=== PATIENT | female | born 2000 | race Caucasian/White ===

== ENCOUNTER 2021-07-09 23:12 | Emergency (ER) | payer OTHER, SELFPAY ==
[2021-07-09 23:27] VITALS: BP 105/75; PULSE 100; RESP 20; TEMP 37.7; O2SAT 99
--- NOTE | 2021-07-10 00:07 | PC.NURSE ---
Pt ambulatory in without difficulty/distress. awaiting ED Room assignment.
[2021-07-10 01:20] LABS: EDCOVIDSCREEN Positive (Negative)
--- NOTE | 2021-07-10 01:42 | ED.GENADULT ---
HPI - General Adult General Chief complaint: Upper Respiratory Infection Stated complaint: covid symptoms since noon Time Seen by Provider: 07/10/21 00:31 History of Present Illness HPI narrative: Patient is a 21-year-old female who presents ER with concerns for COVID-19. She is unvaccinated. This afternoon she began having fevers and chills. She has runny nose without sore throat or productive cough. She has no exertional dyspnea. She reports that her mom checked her pulse oximeter reading and it was 80% however patient has normal oxygen saturation here. No chest pain or chest pressure. No known sick contacts but she does work at a [employer] course inside and they do not wear masks. Related Data Allergies Allergy/AdvReac Type Severity Reaction Status Date / Time Penicillins Allergy Intermediate Unknown Verified 07/09/21 23:33 Review of Systems Review of Systems: All systems reviewed & are unremarkable except as noted in HPI and below Constitutional: Constitutional: Reports chills, Reports fatigue and Reports fever(s) ENT: Denies sore throat Comments: Rhinorrhea Cardiovascular: Cardiovascular: Denies chest pain and Denies radiating jaw, neck or arm pain Respiratory: Respiratory: Denies cough, Denies dyspnea and Denies wheezing Gastrointestinal: Gastrointestinal: Denies abdominal pain, Denies nausea and Denies vomiting PMFSH Past Medical History Medical History (Updated 07/10/21 @ 01:45 by Harvey Becker MD) Anxiety Depression Surgical History Surgical History (Updated 07/10/21 @ 01:45 by Harvey Becker MD) No pertinent past surgical history Social History Social History (Updated 07/10/21 @ 01:45 by Harvey Becker MD) Smoking status: Never smoker Exam Narrative: GENERAL: Well-appearing, well-nourished, and in no acute distress. HEAD: Normocephalic, atraumatic. CHEST: Clear to auscultation. No respiratory distress. HEART: Regular rate and rhythm. Normal peripheral pulses. EXTREMITIES: Normal range of motion. No edema. SKIN: Warm, dry, no rash. NEURO: Alert and oriented x3. PSYCH: Normal mood and affect. Course Course Emergency Course: Informed of results. Discharge home. Vital Signs Vital signs: Vital Signs Temperature 99.9 F H 07/09/21 23:27 Pulse Rate 100 07/09/21 23:27 Respiratory Rate 20 07/09/21 23:27 Blood Pressure 105/75 07/09/21 23:27 Pulse Oximetry 99 07/09/21 23:27 Temperature 99.9 F H 07/09/21 23:27 Pulse Rate 100 07/09/21 23:27 Respiratory Rate 20 07/09/21 23:27 Blood Pressure 105/75 07/09/21 23:27 Pulse Oximetry 99 07/09/21 23:27 Medical Decision Making Vital Signs Vital Signs: Vital Signs Temperature 99.9 F H 07/09/21 23:27 Pulse Rate 100 07/09/21 23:27 Respiratory Rate 20 07/09/21 23:27 Blood Pressure 105/75 07/09/21 23:27 Pulse Oximetry 99 07/09/21 23:27 Temperature 99.9 F H 07/09/21 23:27 Pulse Rate 100 07/09/21 23:27 Respiratory Rate 20 07/09/21 23:27 Blood Pressure 105/75 07/09/21 23:27 Pulse Oximetry 99 07/09/21 23:27 Lab Data Labs: Lab Results 07/10/21 Range/Units 01:01 SARS-CoV-2 IgG/IgM Ag?Rapid Positive (Negative) Discharge Plan Discharge Clinical Impression: COVID-19 Patient Disposition: Home, Self-Care Condition: Stable Instructions: COVID-19 (Coronavirus Disease 2019) (ED) Additional Instructions: Take Tylenol for fever. Return the ER if you cannot keep down food or water, you develop chest pain or shortness of breath, you have a pulse oximetry reading that is persistently below 90%. Contact your primary care physician. They will have to clear you to return to work. Follow-up/Referrals: Michael,Karey Cassidy MD [Primary Care Provider] - 2 Weeks Stand Alone Forms: Work/School Release IP
[2021-07-10 01:53] VITALS: BP 110/78; PULSE 99; RESP 18; O2SAT 100
== END 2021-07-10 01:53 | disposition home or self-care (01) ==
PROVIDERS: Emergency Provider Emergency Medicine; PCP Family Medicine
DX: U07.1 COVID-19 (principal)
CPT/HCPCS: 36415; 87426; 99283; C9803

== ENCOUNTER 2022-04-01 17:27 | Emergency (ER) | payer OTHER, SELFPAY ==
[2022-04-01 17:39] VITALS: BP 123/75; PULSE 76; RESP 16; TEMP 36.5; O2SAT 100
--- NOTE | 2022-04-01 18:22 | ED.WOUNDLAC ---
HPI - Wound/Laceration General Chief Complaint: Wound/Laceration Stated Complaint: chin lac Time Seen by Provider: 04/01/22 18:16 History of Present Illness HPI narrative: 21-year-old female presents the emergency room for evaluation of facial laceration. Patient states that she was struck in the face with a wooden board she was in the barn attempting to clean up after her horse. Board also struck right side of her neck and her right shoulder. Patient states that the bleeding stopped within a few minutes after the injury. Last tetanus is unknown Related Data Allergies Allergy/AdvReac Type Severity Reaction Status Date / Time Penicillins Allergy Intermediate Unknown Verified 07/09/21 23:33 Review of Systems Review of Systems: CONSTITUTIONAL: Denies fever, chills, or sweats. EYES: Denies visual changes, redness, or discharge. ENT: Denies rhinorrhea, congestion, sore throat, or otalgia. CARDIOVASCULAR: Denies chest pain, palpitations, or edema. RESPIRATORY: Denies cough or dyspnea. GASTROINTESTINAL: Denies abdominal pain, nausea, vomiting, or diarrhea. GENITOURINARY: Denies dysuria or hematuria. SKIN: Reports laceration to chin, reports abrasion to right shoulder MUSCULOSKELETAL: Denies back pain, joint pain, or myalgia. NEUROLOGIC: Denies headache, numbness, dizziness, or weakness. PSYCHIATRIC: Denies anxiety or depression. PMFSH Past Medical History Medical History Anxiety Depression Surgical History Surgical History No pertinent past surgical history Social History Social History Smoking status: Never smoker Exam Narrative: GENERAL: Well-appearing, well-nourished, and in no acute distress. HEAD: Normocephalic, atraumatic. EYES: PERRLA and EOMI. CHEST: Clear to auscultation. No respiratory distress. No wheezes rales or rhonchi HEART: Regular rate and rhythm. No murmur heard. Normal peripheral pulses. EXTREMITIES: Normal range of motion. No edema. SKIN: 3 cm laceration to the right side of the chin NEURO: No focal deficits. Alert and oriented x3. PSYCH: Normal mood and affect. Course Vital Signs Vital signs: Vital Signs Temperature 36.5 C 04/01/22 17:39 Pulse Rate 76 04/01/22 17:39 Respiratory Rate 16 04/01/22 17:39 Blood Pressure 123/75 04/01/22 17:39 Pulse Oximetry 100 04/01/22 17:39 Temperature 36.5 C 04/01/22 17:39 Pulse Rate 76 04/01/22 17:39 Respiratory Rate 16 04/01/22 17:39 Blood Pressure 123/75 04/01/22 17:39 Pulse Oximetry 100 04/01/22 17:39 Procedures Laceration Laceration 1: Date: 04/01/22 Time: 19:20 Site: face Side (If applicable): right Size (cm): 3.5 Description: linear Depth: simple, single layer Local Anesthetic: lidocaine 1% Amount of anesthesia used (mL): 4 Pre-repair: irrigated ====== Skin Level ====== Skin layer closed with: nylon Size (cm): 6-0 Number of sutures: 7 Technique: simple, interrupted ====== Subcutaneous Layer ====== ====== Muscle Layer ====== ====== Tendon Layer ====== Discharge Plan Discharge Clinical Impression: Laceration Patient Disposition: Home, Self-Care Condition: Stable Instructions: Antibiotic Form Additional Instructions: Lacerations, and 5 to 7 days. Monitor for signs of infection which include: Redness, swelling, increased pain, purulent discharge. May take Tylenol as needed for pain. Prescriptions: New cephalexin 500 mg capsule 500 mg PO Q12H 7 Days Qty: 14 RF: 0 Follow-up/Referrals: Michael,Karey Cassidy MD [Primary Care Provider] - Time of Disposition:
[2022-04-01] MEDS: TETANUS,DIPHTHERIA,AC PERTUSSIS ADULT (0.5 ML) BOOSTRIX IM (18:59)
--- NOTE | 2022-04-01 19:09 | PC.NURSE ---
Report received from ITALO Jones. EUGENIA Bermudez at bedside.
== END 2022-04-01 19:37 | disposition home or self-care (01) ==
PROVIDERS: Emergency Provider Nurse Practitioner Family; PCP Family Medicine
DX: S01.81XA Laceration without foreign body of other part of head, initial encounter (principal); Z23 Encounter for immunization; W22.8XXA Striking against or struck by other objects, initial encounter
CPT/HCPCS: 12002; 90471; 90715; 99283

== ENCOUNTER 2022-07-05 15:33 | Outpatient (CLI) | payer OTHER, SELFPAY ==
--- NOTE | ~2022-07-05 | XR_ITS ---
EXAMINATION: XR wrist RT min 3V DATE: 07/05/2022 15:47 INDICATION: Right wrist pain. TECHNIQUE: 4 views of right wrist were obtained. COMPARISON: None. FINDINGS: Bone alignment is normal. No fracture. Joint spaces are normal. IMPRESSION: 1. Normal right wrist. Reviewed, dictated and finalized at location A. IMPRESSION: 1. Normal right wrist.
== END 2022-07-05 15:34 ==
PROVIDERS: PCP Family Medicine; Visit Provider Physician Assistant
DX: M25.531 Pain in right wrist (principal)
CPT/HCPCS: 73110

== ENCOUNTER 2022-07-09 10:02 | Outpatient (CLI) | payer OTHER, SELFPAY ==
--- NOTE | ~2022-07-09 | US_ITS ---
US breast RT complete INDICATION: Breast pain. No palpable lump. TECHNIQUE: Dedicated complete right breast ultrasound including all 4 quadrants in the subareolar loc ation. COMPARISON: No prior studies for comparison. FINDINGS: The right breast is composed of normal heterogeneous echotexture without focal solid or cys tic mass. IMPRESSION: 1: Normal right breast ultrasound. BI-RADS CATEGORY 1 - NEGATIVE Reviewed, dictated and finalized at location A.
== END 2022-07-09 10:03 ==
LOC: MICIMG 10:04
PROVIDERS: PCP Family Medicine; Visit Provider Physician Assistant
DX: N64.4 Mastodynia (principal)
CPT/HCPCS: 76641

== ENCOUNTER 2023-04-26 16:10 | Emergency (ER) | payer BC, SELFPAY ==
[2023-04-26 16:25] VITALS: BP 127/74; PULSE 121; RESP 18; TEMP 37; O2SAT 100
--- NOTE | 2023-04-26 16:44 | ED.URI ---
HPI - URI/Sore Throat General Chief Complaint: Upper Respiratory Infection Stated Complaint: sinus drainage, difficulty swallowing Source: patient and RN notes reviewed History of Present Illness HPI Narrative: 22 yo F presents to urgent care with complaints of left sided throat pain, left ear pain, and congestion on the left. Pt states she began having a runny nose and congestion earlirer this week and yesterday began having a left sided throat pain. Pt states the pain is not horrible but she does not look forward to swallowing. Pt denies any fevers, chills, SOB, chest pain, vomiting, or other symptoms. Related Data Home Medications Medication Instructions Recorded Confirmed No Home Medications 04/26/23 04/26/23 Allergies Allergy/AdvReac Type Severity Reaction Status Date / Time Penicillins Allergy Intermediate Unknown Verified 04/26/23 17:03 Review of Systems Review of Systems: Pertinent positives and pertinent negatives per HPI. [facility] Past Medical History Medical History Anxiety Depression Surgical History Surgical History No pertinent past surgical history Social History Social History Smoking status: Never smoker Comments At the time of my signature, I reviewed and agree with the nursing past medical, surgical, social, and family history. There is no relevant family history pertinent to the patient complaint. Exam Narrative: GENERAL: This is a well-nourished, well-developed patient, in no apparent distress. HEAD: normocephalic, atraumatic. EYES: Sclera clear/white. Vision is grossly intact. EARS: External ears normal, auditory canals clear and without drainage, TMs normal without perforation. Hearing grossly intact. NOSE: External nose normal with no obvious nasal discharge, nares without redness, no rhinorrhea. THROAT: Mucous membranes moist, posterior pharynx erythremic. Left tonsil 2+. NO abscess or exudate noted. Right tonsil 1+. NECK: Neck supple, non-tender without lymphadenopathy, masses or thyromegaly. CARDIOVASCULAR: Regular rate and rhythm without murmurs, gallops, or rubs. RESPIRATORY: Clear to auscultation. Breath sounds equal bilaterally. No wheezes, rales, or rhonchi. GASTROINTESTINAL: Abdomen soft, non-tender, nondistended. Bowel sounds are active. No hepato-splenomegaly, or palpable masses. No guarding. SKIN: warm, intact with no suspicious lesions or rash, good texture and turgor. NEURO: awake, alert, and oriented to person, place and time. There were no obvious focal neurologic abnormalities. Course Course Level of Care: Express Care Visit Vital Signs Vital signs: Vital Signs Temperature 98.6 F 04/26/23 16:25 Pulse Rate 121 H 04/26/23 16:25 Respiratory Rate 18 04/26/23 16:25 Blood Pressure 127/74 04/26/23 16:25 Pulse Oximetry 100 04/26/23 16:25 Oxygen Delivery Room Air 04/26/23 16:25 Temperature 98.6 F 04/26/23 16:25 Pulse Rate 121 H 04/26/23 16:25 Respiratory Rate 18 04/26/23 16:25 Blood Pressure 127/74 04/26/23 16:25 Pulse Oximetry 100 04/26/23 16:25 Oxygen Delivery Room Air 04/26/23 16:25 reviewed. MDM - URI/Sore Throat MDM Narrative Medical decision making narrative: Rapid strep is negative in the office; however we will send to the lab for confirmation; there is a small percentage chance that it can come back positive; if it is, we will call you in 2-3days; and your prescription will be call in to your pharmacy. However, there is NO indication for antibiotic at this time. -Increase your fluids and Vitamin C. -Oral rinses such as: Salt water gargles and/or may use topical anesthetic (eg. Chloraseptic spray) or lozenges to relieve dryness or throat pain. -Take tylenol and ibuprofen as needed for pain and fever as directed. -Frequent hand washing o
== END 2023-04-26 17:20 | disposition home or self-care (01) ==
PROVIDERS: Emergency Provider Nurse Practitioner Family; PCP Family Medicine
DX: J02.9 Acute pharyngitis, unspecified (principal)
CPT/HCPCS: 87081; 87880; 99213; G0463

== ENCOUNTER 2023-09-10 14:19 | Emergency (ER) | payer BC, SELFPAY ==
[2023-09-10 14:30] VITALS: BP 101/67; PULSE 98; RESP 16; TEMP 36.5; O2SAT 100
--- NOTE | 2023-09-10 15:01 | ED.GENADULT ---
HPI - General Adult General Chief complaint: Urogenital-Female Stated complaint: Urinary Problem Source: patient Mode of arrival: ambulatory Limitations: no limitations History of Present Illness HPI narrative: Patient presents for evaluation of urinary symptoms for last week. Symptoms include dysuria, urinary frequency, and cloudy appearance of her urine. She developed low back pain about two days ago. No fever, chills, nausea, vomiting, vaginal bleeding or discharge. She has had similar symptoms in the past with UTI. Related Data Home Medications Medication Instructions Recorded Confirmed etonogestrel 68 mg subdermal 1 implant subdermal ONCE 09/10/23 09/10/23 implant (Nexplanon) Allergies Allergy/AdvReac Type Severity Reaction Status Date / Time Penicillins Allergy Intermediate Unknown Verified 09/10/23 14:35 Review of Systems Review of Systems: CONSTITUTIONAL: Denies fever, chills, or sweats. EYES: Denies visual changes, redness, or discharge. ENT: Denies rhinorrhea, congestion, sore throat, or otalgia. CARDIOVASCULAR: Denies chest pain, palpitations, or edema. RESPIRATORY: Denies cough or dyspnea. GASTROINTESTINAL: Denies abdominal pain, nausea, vomiting, or diarrhea. GENITOURINARY: Reports dysuria, urinary frequency, and cloudy parents of the urine. Denies any hematuria, vaginal bleeding or discharge SKIN: Denies rash or itching. MUSCULOSKELETAL: Denies back pain, joint pain, or myalgia. NEUROLOGIC: Denies headache, numbness, dizziness, or weakness. PSYCHIATRIC: Denies anxiety or depression. PMFSH Past Medical History Medical History Anxiety Depression Surgical History Surgical History No pertinent past surgical history Family History Family History (Updated 09/10/23 @ 15:07 by TAMIKO Ruiz, ) Mother Family history non-contributory Social History Social History Smoking status: Never smoker Alcohol intake: never Substance use: never Gender identity (if verbalized by the patient): Female Spiritual care concerns: No Exam Narrative: GENERAL: Well-appearing, well-nourished, and in no acute distress. HEAD: Normocephalic, atraumatic. EYES: PERRLA and EOMI. ENT: Nares clear, no rhinorrhea or epistaxis. Mucous membranes moist. Oropharynx without tonsillar hypertrophy exudate or other lesions. Bilateral TMs pearly huff nonbulging NECK: Supple. No adenopathy or masses. No carotid bruits or JVD CHEST: Clear to auscultation. No respiratory distress. No wheezes rales or rhonchi HEART: Regular rate and rhythm. No murmur heard. Normal peripheral pulses. ABDOMEN: Soft, nontender, nondistended, normal active bowel sounds. EXTREMITIES: Normal range of motion. No edema. BACK: No CVA tenderness SKIN: Warm, dry, no rash. NEURO: No focal deficits. Alert and oriented x3. PSYCH: Normal mood and affect. Course Course Emergency Course: This is a 23-year-old female who presented for evaluation of urinary symptoms. She has leukocytes in her urine today. Will treat with Macrobid. I did offer to provide her with a prescription for Pyridium, which she declined. Follow up with primary provider. Increase hydration. Go to the ER for fever worsening symptoms. Patient in agreement with plan of care Level of Care: Express Care Visit Vital Signs Vital signs: Vital Signs Temperature 36.5 C 09/10/23 14:30 Pulse Rate 98 09/10/23 14:30 Respiratory Rate 16 09/10/23 14:30 Blood Pressure 101/67 09/10/23 14:30 Pulse Oximetry 100 09/10/23 14:30 Oxygen Delivery Room Air 09/10/23 14:30 Temperature 36.5 C 09/10/23 14:30 Pulse Rate 98 09/10/23 14:30 Respiratory Rate 16 09/10/23 14:30 Blood Pressure 101/67 09/10/23 14:30 Pulse Oximetry 100 09/10/23 14:30 Oxygen Deli
== END 2023-09-10 15:02 | disposition home or self-care (01) ==
PROVIDERS: Emergency Provider Nurse Practitioner; PCP Family Medicine
DX: N39.0 Urinary tract infection, site not specified (principal)
CPT/HCPCS: 81003; 87086; 99213; G0463

== ENCOUNTER 2025-06-20 09:06 | Emergency (ER) | payer BC, SELFPAY ==
--- OUTSIDE RECORDS SUMMARY | 2025-06-20 09:08 | XMS_ITS | Clinical Summary ---
Author Organization [facility] Address [facility] [place] [address] Care Team Providers Care Medical Physicist Name Role Phone None, Provider MD Primary Care Provider Unavaila ble Allergies Active Allergy Reactions Criticality Noted Date Comments Penicillins Rash Medium 12/13/2023 Medications ondansetron (ZOFRAN-ODT) 4 MG disintegrating tablet Take 1 tablet (4 mg total) by mouth every 8 (eight) hours as needed. 20 tablet Active benzocaine-menthol (CHLORASEPTIC) 6-10 MG Lozenge Use as directed 1 lozenge in the mouth or throat every 2 (two) hours as needed for Sore throat. 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 Gender Identity Not on file Sexual Orientation Not on file Last Filed Vital Signs Vital Sign Reading Time Taken Comments Blood Pressure 114/84 12/13/2023 4:42 AM NUTRITIONAL HEALTH COACH Pulse 95 12/13/2023 4:42 AM NUTRITIONAL HEALTH COACH Temperature 37.7 C (99.8 F) 12/13/2023 4:42 AM NUTRITIONAL HEALTH COACH Respiratory Rate 18 12/13/2023 4:42 AM NUTRITIONAL HEALTH COACH Oxygen Saturation 100% 12/13/2023 4:42 AM NUTRITIONAL HEALTH COACH Inhaled Oxygen Concentration - - Weight 45.5 kg (100 lb 5 oz) 12/13/2023 4:50 AM NUTRITIONAL HEALTH COACH Height 162.6 cm (5' 4) 12/13/2023 4:50 AM NUTRITIONAL HEALTH COACH Body Mass Index 17.22 12/13/2023 4:50 AM NUTRITIONAL HEALTH COACH Plan of Treatment Health Maintenance Due Date Last Done Comments Cervical Cancer Screening Pap Smear (Age 21 to 29) Every 3 Years 2000 Cervical Cancer Screening 2000 Hepatitis B Vaccines (4 of 4 - 4-dose series) 2000 2000, 2000, 2000 Annual Physical 2003 HPV Vaccines (1 - 3-dose series) 2015 Hepatitis C 2018 Pneumococcal Vaccine: Pediatrics (0 to 5 Years) and At-Risk Patients (6 to 49 Years) (1 of 2 - PCV) 2019 COVID-19 Vaccine ( - season) 2024 DTaP, Tdap and Td Vaccines (7 - Td or Tdap) 04/01/2032 04/01/2022, 06/27/2005, 05/01/2001, Additional history exists Meningococcal B Vaccine Aged Out No l onger eligible based on patient's age to complete this topic Meningococcal Vaccine Aged Out No gualberto gabriela eligible based on patient's age to complete this topic RSV Immunizations Under 20 Months Aged Out No longer eligible based on patient's age to complete this topic Insurance Care Teams Medical Physicist Relationship Specialty Start Date End Date None, Provider, MD PCP - General UNKNOWN PHYSICIAN SPECIALTY 12/13/23
[2025-06-20 09:19] VITALS: BP 126/76; PULSE 76; RESP 16; TEMP 36.6; O2SAT 100
[2025-06-20 09:34] LABS: BEDSIDEPREGUCG Negative (Negative)
[2025-06-20 09:37] LABS: Hematocrit 40.1 % (37.0-47.0); Hemoglobin 13.1 g/dL (12.0-15.0); Immature Granulocyte Percent A 0.3 % (0-0.5); Lymphocytes Absolute Auto 0.65 K/mm3 (0.9-3.2); Mean Corpuscular HGB Conc 32.7 g/dl (32-36); Mean Corpuscular Hemoglobin 29.6 pg (26-34); Mean Corpuscular Volume 90.5 fl (80-100); Nucleated Red Blood Cells Absolute Auto 0.000 K/mm3 (0.0-0.012); Nucleated Red Blood Cells Perc 0.0 % (0.0-0.2); Platelet Count Result 239 k/mm3 (150-375); Red Blood Count 4.43 M/mm3 (4.2-5.4); White Blood Count 6.7 K/mm3 (4.5-10.0)
[2025-06-20 09:39] LABS: Add Urine Microscopic? YES; Appearance Urine Clear (Clear); Glucose Urine UA Negative (Negative); Leukocyte Esterase Ur Trace LEU/UL (Negative); Nitrate Urine Negative (Negative); Non Pathogenic Casts 0-2; Specific Grav Ur 1.021 (1.001-1.035)
--- OUTSIDE RECORDS SUMMARY | 2025-06-20 09:39 | XMS_ITS | Clinical Summary ---
Author Organization [facility] Address Replaced by [facility] [place] [address] Care Team Providers Care Fire Tower Keeper Name Role Phone None, Provider MD Primary [...] on file Legal Sex Female 4:29 AM GUEST SERVICES ASSISTANT Gender Identity Not on file Sexual Orientation Not on file Last Filed Vital Signs Vital Sign Reading Time Taken Comments Blood Pressure 114/84 12/13/2023 4:42 AM GUEST SERVICES ASSISTANT Pulse 95 12/13/2023 4:42 AM GUEST SERVICES ASSISTANT Temperature 37.7 C (99.8 F) 12/13/2023 4:42 AM GUEST SERVICES ASSISTANT Respiratory Rate 18 12/13/2023 4:42 AM GUEST SERVICES ASSISTANT Oxygen Saturation 100% 12/13/2023 4:42 AM GUEST SERVICES ASSISTANT Inhaled Oxygen Concentration - - Weight 45.5 kg (100 lb 5 oz) 12/13/2023 4:50 AM GUEST SERVICES ASSISTANT Height 162.6 cm (5' 4) 12/13/2023 4:50 AM GUEST SERVICES ASSISTANT Body Mass Index 17.22 12/13/2023 4:50 AM GUEST SERVICES ASSISTANT Plan of Treatment Health Maintenance Due Date [...] to complete this topic Insurance Care Teams Fire Tower Keeper Relationship Specialty Start Date End Date None, Provider, MD PCP - General UNKNOWN PHYSICIAN SPECIALTY 12/13/23
[2025-06-20 09:50] LABS: Alanine Aminotransferase 17 U/L (6-35); Albumin Level 4.6 g/dL (3.5-5.1); Alkaline Phosphatase 52 U/L (38-126); Anion Gap 8 mmol/L (4-12); Aspartate Amino Transferase 29 U/L (14-36); Bilirubin,Total 0.5 mg/dL (0.2-1.3); Blood Urea Nitrogen 5 mg/dL (7-17); Calcium 9.5 mg/dL (8.4-10.2); Carbon Dioxide 23 mmol/L (22-30); Chloride 108 mmol/L (98-107); Estimated CRCL calculation 74 ml/min; Estimated Glomerular Filt Rate > 60; Glucose 115 mg/dL (65-110); Lipase 36 U/L (23-300); Potassium 3.7 mmol/L (3.4-5.0); Sodium 139 mmol/L (137-145); Total Protein 7.2 g/dL (6.3-8.2)
--- NOTE | 2025-06-20 10:04 | ED_ITS ---
HPI - General Adult General Chief complaint: Nausea/Vomiting/Diarrhea Stated complaint: NAUSEA Time Seen by Provider: 06/20/25 09:21 History of Present Illness HPI narrative: 25-year-old female presented to the emergency department for evaluation of persistent nausea vomiting. Patient has had outpatient follow-up with her primary care physician and is scheduled to have an outpatient ultrasound of her abdomen. Patient has been using Zofran for nausea control without significant improvement. Patient reports she had a ham sandwich last night and had acute onset nausea and vomiting. Patient states since then the nausea vomiting since improved. Patient does admit to daily THC use. Patient states has been ongoing for approximately last 1.5 years. Patient was aware of the possibility that this was cannabinoid hyperemesis syndrome. Related Data Home Medications ?Medication ?Instructions ?Recorded ?Confirmed ?Last Taken ?Type etonogestrel 68 mg subdermal 1 implant subdermal ONCE 09/10/23 09/10/23 Unknown History implant (Nexplanon) Allergies Allergy/AdvReac Type Severity Reaction Status Date / Time Penicillins Allergy Intermediate Unknown Verified 06/20/25 09:25 Review of Systems 2 Review of Systems: All systems reviewed & are unremarkable except as noted in HPI and below PMFSH Past Medical History Medical History Anxiety Depression Surgical History Surgical History No pertinent past surgical history Family History Family History (Updated 09/10/23 @ 15:07 by NADIA RuizP, ) Mother Family history non-contributory Social History Social History Smoking status: Never smoker Alcohol intake: never Substance use: never Gender identity (if verbalized by the patient): Female Spiritual care concerns: No Exam 2 Narrative: APPEARANCE: Well appearing, no pain, no distress, well-nourished. HEAD: normocephalic, atraumatic. EYES: PERRLA/EOMI, conjunctivae clear. NOSE: Normal no drainage EARS:TMS clear with good light reflex. THROAT: Pharynx clear, no exudate. NECK: Supple. No adenopathy, no masses. RESPIRATORY: Airway patent, respirations nonlabored. Clear to auscultation bilaterally, no rales, rhonchi, wheezing. CARDIOVASCULAR: Regular rate and rhythm without murmurs rubs or gallops. ABDOMINAL: Epigastric tenderness to palpation MUSCULOSKELETAL: Moves all extremities. Strength/ROM intact, No edema, No calf tenderness. NEURO: Alert. Cranial nerves II through XII intact. Grossly intact SKIN: Warm, dry. Normal Color Course Vital Signs Vital signs: Vital Signs Temperature 97.8 F 06/20/25 09:19 Pulse Rate 76 06/20/25 09:19 Respiratory Rate 16 06/20/25 09:19 Blood Pressure 126/76 06/20/25 09:19 Pulse Oximetry 100 06/20/25 09:19 Oxygen Delivery Room Air 06/20/25 09:19 Temperature 97.8 F 06/20/25 09:19 Pulse Rate 90 06/20/25 11:47 Respiratory Rate 16 06/20/25 11:47 Blood Pressure 110/80 06/20/25 11:47 Pulse Oximetry 100 06/20/25 11:47 Oxygen Delivery Room Air 06/20/25 09:19 Medical Decision Making MDM Narrative Medical decision making narrative: 25-year-old female presents to the emergency department for evaluation for nausea vomiting. Patient is currently afebrile with no leukocytosis hemoglobin of 13.1. No acute abnormalities on the patient's CMP UA was negative for infection but did have trace leukocyte esterase high white blood cells with moderate squamous, urine culture was ordered. Patient's urine preg was negative. Patient reports she does feel improved after IV rehydration with a L of lactated Ringer's, IM Haldol and 40 mg of IV Protonix. Patient was educated on cannabinoid hyperemesis syndrome. Patient will be advised to take omeprazole daily for the next 14 days and have close follow-up with GI. All questions concerns were addressed. Patient was requesting to be discharged home. Differential Diagnosis Differential Diagnosis: Gastritis, pancreatitis, acute abnormality hyperemesis syndrome, esophagitis, intractable nausea and vomiting Vital Signs Vital Signs: Vital Signs Temperature 97.8 F 06/20/25 09:19 Pulse Rate 76 06/20/25 09:19 Respiratory Rate 16 06/20/25 09:19 Blood Pressure 126/76 06/20/25 09:19 Pulse Oximetry 100 06/20/25 09:19 Oxygen Delivery Room Air 06/20/25 09:19 Temperature 97.8 F 06/20/25 09:19 Pulse Rate 90 06/20/25 11:47 Respiratory Rate 16 06/20/25 11:47 Blood Pressure 110/80 06/20/25 11:47 Pulse Oximetry 100 06/20/25 11:47 Oxygen Delivery Room Air 06/20/25 09:19 Lab Data Lab results reviewed: Yes I reviewed the patient's lab results. 06/20/25 09:29 06/20/25 09:29 Labs: Lab Results 06/20/25 06/20/25 Range/Units 09:29 09:32 WBC 6.7 (4.5-10.0) K/mm3 RBC 4.43 (4.2-5.4) M/mm3 Hgb 13.1 (12.0-15.0) g/dL Hct 40.1 (37.0-47.0) % MCV 90.5 (80-100) fl MCH 29.6 (26-34) pg MCHC 32.7 (32-36) g/dl RDW 12.3 (11.5-14.5) % Plt Count 239 (150-375) k/mm3 MPV 9.6 (7.4-10.4) fl Immature Gran % (Auto) 0.3 (0-0.5) % Neut % (Auto) 84.1 H (45.5-73.1) % Lymph % (Auto) 9.8 L (18.3-44.2) % Miller % (Auto) 4.5 (2.6-8.5) % Eos % (Auto) 0.2 (0-4.4) % Baso % (Auto) 1.1 (0.2-1.2) % Lymph # (Auto) 0.65 L (0.9-3.2) K/mm3 Miller # (Auto) 0.3 (0.1-0.6) K/mm3 Eos # (Auto) 0.0 (0-0.3) K/mm3 Baso # (Auto) 0.1 (0.0-0.1) K/mm3 Abs Immat Gran (auto) 0.02 (0.00-0.031) K/mm3 Absolute Neuts (auto) 5.6 (1.3-6.7) K/mm3 Absolute Nucleated RBC 0.000 (0.0-0.012) K/mm3 Nucleated RBC % 0.0 (0.0-0.2) % Sodium 139 (137-145) mmol/L Potassium 3.7 (3.4-5.0) mmol/L Chloride 108 H (98-107) mmol/L Carbon Dioxide 23 (22-30) mmol/L Anion Gap 8 (4-12) mmol/L BUN 5 L (7-17) mg/dL Creatinine 0.81 (0.7-1.0) mg/dL Estim Creat Clear Calc 74 ml/min Estimated GFR > 60 (59 - ) Glucose 115 H (65-110) mg/dL Calcium 9.5 (8.4-10.2) mg/dL Total Bilirubin 0.5 (0.2-1.3) mg/dL AST 29 (14-36) U/L ALT 17 (6-35) U/L Alkaline Phosphatase 52 (38-126) U/L Total Protein 7.2 (6.3-8.2) g/dL Albumin 4.6 (3.5-5.1) g/dL Lipase 36 (23-300) U/L Urine Color Yellow (Yellow) Urine Appearance Clear (Clear) Urine pH 8.0 (5.0-9.0) Ur Specific [place] 1.021 (1.001-1.035) Urine Protein Negative (Negative) mg/dL Urine Glucose (UA) Negative (Negative) mg/dL Urine Ketones 3+ H (Negative) mg/dL Ur Blood (Man) Negative (Negative) Urine Nitrate Negative (Negative) Urine Bilirubin Negative (Negative) Urine Urobilinogen 0.2 (<2.0) mg/dL Leukocyte Esterase Rfl Trace H (Negative) KATHRYN/UL Urine RBC 0-2 (0-2) /hpf Urine WBC 11-20 H (0-3) /hpf Ur Squamous Epith Cells Moderate (Few) /hpf Urine Bacteria Rare /hpf Urine Casts 0-2 POC Urine HCG, Qual Negative (Negative) Discharge Plan Discharge Clinical Impression: Gastritis, Abdominal pain Patient Disposition: Home Condition: Stable Instructions: Antibiotic Form, Clear Liquid Diet (ED), Acute Nausea and Vomiting (ED) Additional Instructions: Continue your Zofran as needed for nausea control. Reglan as needed for additional nausea control. Follow a clear liquid diet for the next 1-3 days. Omeprazole as directed for the next 14 days. Have close follow-up with GI. Continue to educate yourself on cannabinoid hyperemesis syndrome and I do recommend a THC washout for at least 30 days. Patient Language: Portuguese Prescriptions: New omeprazole 20 mg capsule,delayed release(DR/EC) 20 mg PO DAILY 14 Days Qty: 14 0RF metoclopramide HCl [Reglan] 10 mg tablet 10 mg PO Q6H PRN (Reason: nausea and vomiting) Qty: 14 0RF No Action Nexplanon 68 mg Implant 1 implant SUBDERMAL ONCE Rx Instructions: as a single dose nitrofurantoin monohyd/m-cryst [Macrobid] 100 mg capsule 100 mg PO Q12H 7 Days Qty: 14 0RF Rx Instructions: must administer with a meal/food Follow-up/Referrals: PHYSICIAN,SHEETER OPERATOR [Primary Care Provider] - Mono Morris MD [Physician] -
[2025-06-20] MEDS: PANTOPRAZOLE SODIUM IV 40 MG VIAL IV PUSH (10:11)
[2025-06-20] MEDS: HALOPERIDOL LACTATE 5 MG/ML VIAL IM (10:11)
[2025-06-20] MEDS: LACTATED RINGERS 1,000 ML 999 ML IV CONT (10:11)
[2025-06-20 11:47] VITALS: BP 110/80; PULSE 90; RESP 16; O2SAT 100
== END 2025-06-20 11:48 | disposition home or self-care (01) ==
PROVIDERS: Emergency Provider Emergency Medicine
DX: K29.70 Gastritis, unspecified, without bleeding (principal); F41.8 Other specified anxiety disorders
CPT/HCPCS: 36415; 80053; 81001; 81025; 83690; 85025; 96361; 96372; 96374; 99284; J1630; J2470; J7120

== ENCOUNTER 2025-08-09 10:01 | Outpatient (CLI) | payer BC, SELFPAY ==
--- NOTE | ~2025-08-09 | XR_ITS ---
EXAMINATION: XR wrist LT min 3V, 08/09/2025 10:10 CDT HISTORY: G56.03 - Carpal tunnel syndrome, bilateral upper limbs COMPARISON: No comparisons available. Findings: No acute fracture or malalignment. No significant degenerative changes. Soft tissues unremarkable. Impression: No acute fracture or malalignment. Reviewed, dictated and finalized at location A. Impression: No acute fracture or malalignment.
--- NOTE | ~2025-08-09 | XR_ITS ---
X-rays right wrist Indication: Carpal tunnel syndrome, G 56.03 Comparison: None Technique: 4 views right wrist Findings/Impression: 1. No fracture or dislocation right wrist. 2. No degenerative changes. Reviewed, dictated and finalized at location R.
--- OUTSIDE RECORDS SUMMARY | 2025-08-09 11:12 | XMS_ITS | Clinical Summary ---
Author Organization [facility] Address [address] [place] [address] Care Team Providers Care Quantitative Software Engineer Name Role Phone Unavailable Primary Care Provider Unavailabl e Source Comments [facility],non-owned Affiliates and Associated Physician Practices is amultiple site organization consisting of ambulatory clinics and hospital sitesin [place], [place], [place] and [place]. This disclosure is being madepursuant to the Care Everywhere program and may not contain all information available regarding this patient. Last updated 18.[facility] Allergies Active Allergy Reactions Criticality Noted Date Comments Penicillins Urticaria,Rash Medium 06/21/2025 Encounters Date Type Department Care Team Description 06/24/2025 6:55 AM CDT - 06/24/2025 11:59 PM CDT Hospital Encounter [facility] - Ultrasound [address] [place] [address] Shana Chadwick, HISTORY TEACHER-SLOT OPERATIONS DIRECTOR Discharge Disposition: Home or Self Care 06/23/2025 Travel 06/21/2025 4:58 PM CDT - 06/21/2025 6:16 PM CDT Emergency ER at [facility] [address] [place] [address] Mahad Ellington MD Nausea and vomiting, unspecified vomiting type; Vomiting and diarrhea Discharge Disposition: Home or Self Care 06/21/2025 Travel from Last 3 Months Social History Tobacco Use Types Packs/Day Years Used Date Smoking Tobacco: Never Assessed Comments Unknown Sex and Gender Information Value Date Recorded Sex Assigned at Female 06/23/2025 12:55 PM CDT Legal Sex Female 4:29 PM CDT Gender Identity Not on file Sexual Orientation Not on file Last Filed Vital Signs Vital Sign Reading Time Taken Comments Blood Pressure 115/76 06/21/2025 6:10 PM CDT Pulse 74 06/21/2025 6:10 PM CDT Temperature 37.2 C (98.9 F) 06/21/2025 4:30 PM CDT Respiratory Rate 14 06/21/2025 4:30 PM CDT Oxygen Saturation 98% 06/21/2025 6:10 PM CDT Inhaled Oxygen Concentration - - Weight 50.7 kg (111 lb 12.4 oz) 06/21/2025 4:30 PM CDT Height 162.6 cm (5' 4) 06/21/2025 4:30 PM CDT Body Mass Index 19.19 06/21/2025 4:30 PM CDT Plan of Treatment Health Maintenance Due Date Last Done Comments HIV SCREENING 2015 HPV VACCINE (1 - 3-dose series) 2015 CHLAMYDIA/GONORRHEA SCREENING 2016 HEPATITIS C SCREENING 04/28/2018 DTAP/TDAP/TD VACCINES (1 - Tdap) 2019 HEPATITIS B VACCINE (1 of 3 - 19+ 3-dose series) 2019 PAP SMEAR 2021 DEPRESSION SCREENING 11/18/2024 COVID-19 VACCINE (1 - 2023-2 5 season) 2025 INFLUENZA VACCINE (#1) 2025 ZOSTER VACCINE (1 of 2) 2050 HIB VACCINE Aged Out No longer eligi ble based on patient's age to complete this topic MENINGOCOCCAL (Group B) VACC INE SHARED DECISION-MAKING Aged Out No longer eligibl e based on patient's age to complete this topic MENINGOCOCCAL GROUPS A/C/Y/W VACCINE Aged Out No longer eligible b ased on patient's age to complete this topic PNEUMOCOCCAL VACCINE Aged Out No long er eligible based on patient's age to complete this topic Procedures Procedure Name Priority Date/Time Associated Diagnosis Comments US ABDOMEN COMPLETE Routine 06/24/2025 7 :24 AM CDT Abdominal pain, generalized HCG BLOOD QUALITATIVE STAT 06/21/2025 4:50 PM CDT MAGNESIUM BLOOD STAT 06/21/2025 4:50 PM CDT LIPASE BLOOD STAT 06/21/2025 4:50 PM CDT CBC W AUTO DIFFERENTIAL STAT 06/21/2025 4:50 PM CDT COMPREHENSIVE METABOLIC PANEL STAT 06/21/2025 4:50 PM CDT from Last 3 Months Results * US Abdomen Complete (06/24/2025 7:24 AM CDT) Anatomical Region Laterality Modality Abdomen Ultrasound 06/24/2025 7:37 AM CDT Impressions 06/24/2025 7:40 AM CDT IMPRESSION: Complete abdominal ultrasound with no active abnormality > Interpreting Provider: Shana Moreno MD on 06/24/2025 7:40 AM Narrative 06/24/2025 7:40 AM CDT PROCEDURE: US ABDOMEN COMPLETE DATE/TIME OF EXAM: 06/24/2025 7:24 AM CLINICAL INFORMATION: Generalized abdominal pain. Indication: R10.84: Abdominal pain, generalized Additional History: COMPARISON: None. TECHNIQUE: Real-time ultrasound of the abdomen, complete, with DICOM image capture performed by office technologist. FINDINGS: The visualized pancreas demonstrates no sonographic abnormalities. The liver is uniform in echogenicity throughout. Normal color flow is seen in the portal vein and hepatic veins. No stones or sludge are seen within the gallbladder. The gallbladder wall is normal in thickness. No pericholecystic fluid is noted. The common duct is normal in diameter 2 mm. The kidneys are normal in appearance sonographically. The right kidney measures 9.8 cm in length. The left kidney measures 10.6 cm in length. The spleen is homogeneous in echogenicity and measures 10 cm in length. Incidental note is made of an accessory splenule. The abdominal aorta and inferior vena cava are normally patent Procedure Note Shana Moreno MD - 06/24/2025 PROCEDURE: US ABDOMEN COMPLETE DATE/TIME OF EXAM: 06/24/2025 7:24 AM CLINICAL INFORMATION: Generalized abdominal pain. Indication: R10.84: Abdominal pain, generalized Additional History: COMPARISON: None. TECHNIQUE: Real-time ultrasound of the abdomen, complete, with DICOMimage capture performed by office technologist. FINDINGS: The visualized pancreas demonstrates no sonographic abnormalities. The liver is uniform in echogenicity throughout. Normal color flow isseen in the portal vein and hepatic veins. No stones or sludge are seen within the gallbladder. The gallbladderwall is normal in thickness. No pericholecystic fluid is noted. The commonduct is normal in diameter 2 mm. The kidneys are normal in appearance sonographically. The right kidney measures 9.8 cm in length. The left kidney measures 10.6 cm in length. The spleen is homogeneous in echogenicity and measures 10 cm in length. Incidental note is made of an accessory splenule. The abdominal aorta and inferior vena cava are normally patent IMPRESSION: Complete abdominal ultrasound with no active abnormality > Interpreting Provider: Shana Moreno MD on 06/24/2025 7:40 AM us Shana Chadwick HISTORY TEACHER-SLOT OPERATIONS DIRECTOR US ORDERABLES Final Re sult * (ABNORMAL) CBC W AUTO DIFFERENTIAL (06/21/2025 4:50 PM CDT) WBC 7.4 4.0 - 10.7 x10E9/L 06/21/2025 5:24 PM CDT [facility] RBC Count 4.28 3.90 - 5.20 x10E12/L 06/21/2025 5:24 PM CDT [facility] Hemoglobin 13.0 11.9 - 15.8 g/dL 06/21/2025 5:24 PM CDT [facility] Hematocrit 38.7 34.8 - 46.1 % 06/21/2025 5:24 PM CDT [facility] MCV 90.4 80.0 - 98.0 fL 06/21/2025 5:24 PM CDT [facility] MCH 30.4 26.7 - 33.6 pg 06/21/2025 5:24 PM CDT [facility] MCHC 33.6 31.7 - 36.3 g/dL 06/21/2025 5:24 PM CDT [facility] RDW-CV 12.2 11.3 - 14.8 % 06/21/2025 5:24 PM CDT [facility] Platelet Count 239 150 - 420 x10E9/L 06/21/2025 5:24 PM CDT [facility] MPV 10.1 7.8 - 11.4 fL 06/21/2025 5:24 PM CDT [facility] Neutrophil % 75.2(H) 41.0 - 74.0 % 06/21/2025 5:24 PM CDT [facility] Lymphocyte % 18.1 17.0 - 47.0 % 06/21/2025 5:24 PM CDT [facility] Monocyte % 5.5 3.0 - 11.0 % 06/21/2025 5:24 PM CDT [facility] Eosinophil % 0.1 0.0 - 7.0 % 06/21/2025 5:24 PM CDT [facility] Basophil % 0.7 0.0 - 1.6 % 06/21/2025 5:24 PM CDT [facility] Immature Granulocytes % 0.4 0.0 - 1.0 % 06/21/2025 5:24 PM CDT [facility] Neutrophil Absolute 5.57 1.60 - 7.50 x10E9/L 06/21/2025 5:24 PM CDT [facility] Lymphocyte Absolute 1.34 1.00 - 4.40 x10E9/L 06/21/2025 5:24 PM CDT [facility] Monocyte Absolute 0.41 0.15 - 1.00 x10E9/L 06/21/2025 5:24 PM CDT [facility] Eosinophil Absolute 0.01 0.00 - 0.60 x10E9/L 06/21/2025 5:24 PM CDT [facility] Basophil Absolute 0.05 0.00 - 0.13 x10E9/L 06/21/2025 5:24 PM CDT [facility] Blood BLOOD SPECIMEN / Unknown Venipuncture / Unknown 06/21/2025 4:50 PM CDT 06/21/2025 5:06 PM CDT us Brennan Bartlett PA-C LAB - HEMATOLOGY ORDERABLES Fi nal Result [facility] [address] [place] [address] * (ABNORMAL) COMPREHENSIVE METABOLIC PANEL (06/21/2025 4:50 PM CDT) [facility] Glucose 91 70 - 99 mg/dL 06/21/2025 5:23 PM [facility] Sodium 140 136 - 145 mmol/L 06/21/2025 5:23 PM [facility] Potassium 3.5 3.5 - 5.1 mmol/L 06/21/2025 5:23 PM [facility] Chloride 108(H) 98 - 107 mmol/L 06/21/2025 5:23 PM [facility] CO2 22 22 - 29 mmol/L 06/21/2025 5:23 PM [facility] Calcium 9.0 8.4 - 10.4 mg/dL 06/21/2025 5:23 PM [facility] Anion Gap 10 6 - 16 mmol/L 06/21/2025 5:23 PM [facility] BUN 7 5.3 - 18.7 mg/dL 06/21/2025 5:23 PM [facility] Creatinine 0.81 0.57 - 1.11 mg/dL 06/21/2025 5:23 PM [facility] Alkaline Phosphatase 50 40 - 150 U/L 06/21/2025 5:23 PM [facility] ALT 19 6 - 57 U/L 06/21/2025 5:23 PM [facility] AST 34 10 - 48 U/L 06/21/2025 5:23 PM [facility] Protein Total 6.9 6.4 - 8.3 gm/dL 06/21/2025 5:23 PM [facility] Albumin 4.7(H) 3.1 - 4.5 gm/dL 06/21/2025 5:23 PM [facility] Bilirubin Total 0.6 0.2 - 1.2 mg/dL 06/21/2025 5:23 PM [facility] eGFR by CKD-EPI >90 >=90 mL/min/1.7 3 m2 06/21/2025 5:23 PM [facility] Comment:Estimated Glomerular Filtration Rate (eGFR) calculated using the CKD-EPI Creatinine Equation (2020), per the National Kidney Foundation and [place] Society of Nephrology recommendations. Blood BLOOD SPECIMEN / Unknown Venipuncture / Unknown 06/21/2025 4:50 PM CDT 06/21/2025 5:06 PM CDT Brennan Bartlett PA-C LAB - CHEMISTRY ORDERABLES Fin al Result Performing Organization Address [facility] Co de Phone Number [facility] [place] [address] * MAGNESIUM BLOOD (06/21/2025 4:50 PM CDT) [facility] Magnesium 2.0 1.6 - 2.6 mg/dL 06/21/2025 5:23 PM CDT [facility] Blood BLOOD SPECIMEN / Unknown Venipuncture / Unknown 06/21/2025 4:50 PM CDT 06/21/2025 5:06 PM CDT Brennan Bartlett PA-C LAB - CHEMISTRY ORDERABLES Fin al Result Performing Organization Address [facility] Phone Number [facility] [place] [address] * LIPASE BLOOD (06/21/2025 4:50 PM CDT) [facility] Lipase 12 <60 U/L 06/21/2025 5:23 PM CDT [facility] Blood BLOOD SPECIMEN / Unknown Venipuncture / Unknown 06/21/2025 4:50 PM CDT 06/21/2025 5:06 PM CDT Brennan Bartlett PA-C LAB - CHEMISTRY ORDERABLES Fin al Result Performing Organization Address [facility] de Phone Number [facility] [address] [place] [place] [id number] * HCG BLOOD QUALITATIVE (06/21/2025 4:50 PM CDT) [facility] HCG Qual Serum Negative Negative 06/21/2025 5:33 PM CDT [facility] Blood BLOOD SPECIMEN / Unknown Venipuncture / Unknown 06/21/2025 4:50 PM CDT 06/21/2025 5:06 PM CDT Narrative [facility] - 06/21/2025 5:33 PM CDT Specimens containing human anti-mouse antibodies may exhibit false positive or false negative results. If qualitative interpretation is inconsistent with clinical evaluation, consider confirmation by an alternative hCG method. us Brennan Bartlett PA-C LAB - CHEMISTRY ORDERABLES Fin al Result [facility] [address] [place] [phone] from Last 3 Months Insurance [facility]
--- OUTSIDE RECORDS SUMMARY | 2025-08-09 11:12 | XMS_ITS | Clinical Summary ---
Author Organization [facility] Address [facility] [place] [address] Care Team Providers Care Coat Examiner Name Role Phone None, Provider MD Primary [...] on file Legal Sex Female 4:29 AM VALET ATTENDANT Gender Identity Not on file Sexual Orientation Not on file Last Filed Vital Signs Vital Sign Reading Time Taken Comments Blood Pressure 114/84 12/13/2023 4:42 AM VALET ATTENDANT Pulse 95 12/13/2023 4:42 AM VALET ATTENDANT Temperature 37.7 C (99.8 F) 12/13/2023 4:42 AM VALET ATTENDANT Respiratory Rate 18 12/13/2023 4:42 AM VALET ATTENDANT Oxygen Saturation 100% 12/13/2023 4:42 AM VALET ATTENDANT Inhaled Oxygen Concentration - - Weight 45.5 kg (100 lb 5 oz) 12/13/2023 4:50 AM VALET ATTENDANT Height 162.6 cm (5' 4) 12/13/2023 4:50 AM VALET ATTENDANT Body Mass Index 17.22 12/13/2023 4:50 AM VALET ATTENDANT Plan of Treatment Health Maintenance Due Date [...] PCV) 2019 COVID-19 Vaccine ( - season) 2025 DTaP, Tdap and Td Vaccines (7 - [...] to complete this topic Insurance Care Teams Coat Examiner Relationship Specialty Start Date End Date None, Provider, MD PCP - General UNKNOWN PHYSICIAN SPECIALTY 12/13/23
== END 2025-08-09 10:02 | disposition home or self-care (01) ==
LOC: ANHIMG 10:08
PROVIDERS: Visit Provider Plastic Surgery
DX: G56.03 Carpal tunnel syndrome, bilateral upper limbs (principal)
CPT/HCPCS: 73110